=== PATIENT | female | born 1940 | race Two or more races ===

== ENCOUNTER 2018-08-08 13:52 | Inpatient (IN) | payer MEDICARE, OTHER ==
[~2018-08-08] VITALS: Ht 149.9 cm; Wt 68.6 kg
[2018-08-08] MEDS: PANTOPRAZOLE 40 MG TABLET.DR. PO SCH (07:30)
[2018-08-08 14:24] LABS: BASO # 0.1 x10^3/uL (0.0-0.2); BASO % 1 % (0-3); EOS % 1 % (0-3); HEMOGLOBIN 12.9 g/dL (12.0-15.5); LYMPH # 1.8 x10^3/uL (1.0-4.8); LYMPH % 25 % (24-48); MEAN CORPUSCULAR HEMOGLOBIN 32 pg (25-35); MEAN CORPUSCULAR HGB CONC 34 g/dL (31-37); MEAN CORPUSCULAR VOLUME 95 fL (79-100); MONO # 0.4 x10^3/uL (0.0-1.1); MONO % 5 % (0-9); NEUT # 4.9 x10^3uL (1.8-7.7); NEUT % 68 % (31-73); PLATELET COUNT 247 x10^3/uL (140-400); RED BLOOD COUNT 4.01 x10^6/uL (3.50-5.40); RED CELL DISTRIBUTION WIDTH 12.8 % (11.5-14.5); WHITE BLOOD COUNT 7.2 x10^3/uL (4.0-11.0)
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
[2018-08-08] MEDS ORDERED: tiZANidine 4 MG TABLET. PO ONE (14:30)
[2018-08-08] MEDS ORDERED: HYDROcodone/APAP 5/325MG 1 TAB TABLET PO ONE (14:30)
[2018-08-08 14:33] LABS: CALCIUM 9.5 mg/dL (8.5-10.1); GFR 53.3
[2018-08-08 14:38] LABS: BILIRUBIN,URINE NEGATIVE (NEG); COLOR,URINE YELLOW; NITRITE,URINE NEGATIVE (NEG); PROTEIN,URINE NEGATIVE (NEG-TRACE); UROBILINOGEN,URINE 0.2 mg/dL (0.2 mg/dL)
--- NOTE | 2018-08-08 14:38 | RAD ---
PROCEDURE: PORTABLE CHEST 1V CLINICAL INDICATION: LOWER BACK PAIN RADIATING TOWARDS LEFT ARM X1 WEEK COMPARISON: None FINDINGS: No pneumothorax identified. Cardiac and mediastinal contours unremarkable. No pulmonary consolidation or acute airspace disease. No acute osseous abnormalities identified. IMPRESSION: No pulmonary consolidation or acute airspace disease. Electronically signed by: Mann Munoz DO (08/08/2018 2:35 PM) [facility]
[2018-08-08 14:39] LABS: ALBUMIN 4.3 g/dL (3.4-5.0); TOTAL BILIRUBIN 0.5 mg/dL (0.2-1.0); TOTAL PROTEIN 8.6 g/dL (6.4-8.2)
[2018-08-08 14:41] LABS: CLARITY,URINE CLEAR
[2018-08-08 14:47] LABS: BACTERIA,URINE 0 /HPF (0-FEW); RBC,URINE 0 /HPF (0-2); SQUAMOUS EPITHELIAL CELL,UR FEW /LPF; WBC,URINE OCC /HPF (0-4)
--- NOTE | 2018-08-08 15:22 | RAD ---
CT cervical spine without contrast 08/08/2017 Clinical indication: Neck pain. COMPARISON: None. TECHNIQUE: Multiple CT images of the cervical spine were obtained without contrast. *One or more of the following individualized dose reduction techniques were utilized for this examination: 1. Automated exposure control. 2. Adjustment of the mA and/or kV according to patient size. 3. Use of iterative reconstruction technique. FINDINGS: Anterior cervical discectomy and fusion at C6-C7 with solid intervertebral fusion. No acute cervical spine fracture or traumatic malalignment. There is multilevel cervical spondylosis, greatest to a mild to moderate degree at C5-C6 with disc space narrowing endplate sclerosis and marginal osteophyte formation. Cervical spondylosis in conjunction with uncovertebral and facet hypertrophy on the left results in neural foraminal narrowing to a mild degree on the left at C2-C3 and C3-C4 and moderate degree on the left at C4-C5 and moderate degree on the left at C5-C6. No significant spinal canal narrowing. The paraspinal soft tissues are unremarkable. The visualized lung apices are clear. IMPRESSION: 1. No acute cervical spine fracture or traumatic malalignment. 2. ACDF at C6-C7. 3. Multilevel neural foraminal stenosis, greatest to a moderate degree, on the left at C5-C6. Electronically signed by: Jcarlos Buenrostro MD (08/08/2018 3:19 PM) [facility]
--- NOTE | 2018-08-08 15:25 | RAD ---
CT thoracic spine without contrast 08/08/2017 CLINICAL INDICATION: Back pain with no new injury. COMPARISON: None. TECHNIQUE: Multiple CT images of the thoracic spine were obtained without contrast. *One or more of the following individualized dose reduction techniques were utilized for this examination: 1. Automated exposure control. 2. Adjustment of the mA and/or kV according to patient size. 3. Use of iterative reconstruction technique. FINDINGS: Dextroconvex thoracic scoliosis. Vertebral body heights are maintained. Multilevel thoracic spondylosis with osteophytic spurring. Partial visualization of ACDF hardware at C6-C7. No significant spinal canal or neural foraminal narrowing. The paraspinal soft tissues are unremarkable. Coronary artery calcifications are noted. IMPRESSION: No acute thoracic spine fracture or traumatic malalignment. Electronically signed by: Jcarlos Buenrostro MD (08/08/2018 3:21 PM) [facility]
--- NOTE | 2018-08-08 15:49 | RAD ---
CT lumbar spine without contrast 08/08/2018 Clinical indication: Back pain. COMPARISON: None. TECHNIQUE: Multiple CT images of the lumbar spine were obtained without contrast. *One or more of the following individualized dose reduction techniques were utilized for this examination: 1. Automated exposure control. 2. Adjustment of the mA and/or kV according to patient size. 3. Use of iterative reconstruction technique. FINDINGS: There are 5 nonrib-bearing lumbar-type vertebral bodies with the 1st considered L1. Vertebral body heights are maintained. There is mild lumbar spinal curvature which may be positional. There is mild multilevel lumbar spondylosis, greatest from T12-L1 through L2-L3 with disc space narrowing and marginal osteophyte formation. The paraspinal soft tissues are unremarkable. There is abutment of the spinous processes from L2-L3 through L4-L5 with adjacent bony remodeling evidenced by sclerosis and cystic change. From T12-L1 through L3-L4, no significant spinal canal or neural foraminal narrowing. At L4-L5, shallow disc bulging with facet hypertrophy and ligamentum flavum thickening resulting in mild spinal canal narrowing. No significant neuroforaminal narrowing. No significant spinal canal or neural foraminal narrowing at L5-S1. IMPRESSION: No acute lumbar spine fracture or traumatic malalignment. Electronically signed by: Jcarlos Buenrostro MD (08/08/2018 3:46 PM) [facility] [place]
[2018-08-08] MEDS ORDERED: PRED20TA PO (15:57)
[2018-08-08] MEDS ORDERED: TIZA4CAP3 PO (15:57)
[2018-08-08] MEDS ORDERED: IV NORMAL SALINE 1000ML BAG 1,000 ML IV ONE ×2 (17:00→17:45)
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
[2018-08-08] MEDS ORDERED: fentaNYL PF VIAL 100 MCG/2 ML VIAL IV ONE (17:30)
[2018-08-08 19:25] VITALS: BP 117/62
[2018-08-08] MEDS ORDERED: CETI10TA22 PO (20:39)
[2018-08-08] MEDS ORDERED: AMLO2.5T5 PO (20:39)
[2018-08-08] MEDS ORDERED: HYDR-2759 PO (20:39)
[2018-08-08] MEDS ORDERED: ATOR20TA58 PO (20:39)
[2018-08-08] MEDS ORDERED: POLY17PO29 PO (20:39)
[2018-08-08] MEDS ORDERED: LEVO50TA5 PO (20:39)
[2018-08-08] MEDS ORDERED: DOCU-109 PO (20:39)
[2018-08-08] MEDS ORDERED: CELE100C PO (20:39)
[2018-08-08] MEDS ORDERED: OMEP10SU2 PO (20:39)
[2018-08-08] MEDS ORDERED: ALPR0.25 PO (20:39)
[2018-08-08] MEDS ORDERED: SERT50TA PO (20:39)
[2018-08-08] MEDS ORDERED: LISI-130 PO (20:39)
[2018-08-08] MEDS ORDERED: POLYETHYLENE GLYCOL 3350 17 GM PACKET. PO PRN (20:45)
[2018-08-08] MEDS ORDERED: MORPHINE SULFATE 4 MG/ML VIAL. IV PRN (20:45)
[2018-08-08] MEDS ORDERED: ACETAMINOPHEN 325 MG TABLET. PO PRN (20:45)
[2018-08-08] MEDS ORDERED: ONDANSETRON PF 4 MG/2 ML VIAL. IV PRN (20:45)
[2018-08-08] MEDS ORDERED: ALPRAZolam 0.25 MG TABLET PO PRN (20:45)
[2018-08-08] MEDS ORDERED: MAGNESIUM HYDROXIDE 2,400 MG/30 ML ORAL.SUSP. PO PRN (20:45)
[2018-08-08] MEDS ORDERED: HYDROcodone/APAP 5/325MG 1 TAB TABLET PO PRN (21:00)
[2018-08-08] MEDS: SENNOSIDES/DOCUSATE 8.6/50MG TABLET. PO SCH (21:00)
[2018-08-08] MEDS: DOCUSATE SODIUM 100 MG CAPSULE. PO SCH (21:48)
[2018-08-08] MEDS: CELECOXIB 100 MG CAPSULE. PO SCH (21:48)
[2018-08-08] MEDS: HYDROcodone/APAP 5/325MG 1 TAB TABLET PO PRN (21:48)
[2018-08-08] MEDS: methylPREDNISolone SOD SUCC PF 40 MG/ML VIAL. IV SCH (21:49)
[2018-08-08] MEDS: ATORVASTATIN CALCIUM 20 MG TABLET PO SCH (21:49)
[2018-08-08] MEDS: IV RINGERS,LACTATED 1000ML 1,000 ML IV SCH (21:53)
[2018-08-08] MEDS: LIDOCAINE (700MG/PATCH) PATCH. TD SCH (21:53)
[2018-08-08] MEDS: HEPARIN for SUB-Q USE 5,000 UNIT/ML VIAL. SQ SCH (21:56)
[2018-08-08 23:35] VITALS: BP 115/56
[2018-08-09 03:30] VITALS: BP 146/62
[2018-08-09] MEDS: HYDROcodone/APAP 5/325MG 1 TAB TABLET PO PRN ×3 (05:46→21:21)
[2018-08-09] MEDS: LEVOTHYROXINE 50 MCG TABLET PO SCH (05:46)
[2018-08-09] MEDS: HEPARIN for SUB-Q USE 5,000 UNIT/ML VIAL. SQ SCH ×3 (05:52→21:31)
[2018-08-09] MEDS: IV RINGERS,LACTATED 1000ML 1,000 ML IV SCH ×2 (06:34→10:00)
[2018-08-09] MEDS: PANTOPRAZOLE 40 MG TABLET.DR. PO SCH (07:30)
[2018-08-09 07:46] VITALS: BP 155/67
[2018-08-09] MEDS: SENNOSIDES/DOCUSATE 8.6/50MG TABLET. PO SCH ×2 (08:07→21:00)
[2018-08-09] MEDS: amLODIPine BESYLATE 5 MG TABLET PO SCH (08:08)
[2018-08-09] MEDS: methylPREDNISolone SOD SUCC PF 40 MG/ML VIAL. IV SCH ×2 (08:08→21:00)
[2018-08-09] MEDS: CETIRIZINE HCL 10 MG TABLET. PO SCH (08:09)
[2018-08-09] MEDS: DOCUSATE SODIUM 100 MG CAPSULE. PO SCH ×2 (08:09→21:00)
[2018-08-09] MEDS: SERTRALINE 50 MG TABLET. PO SCH (08:09)
[2018-08-09] MEDS: CELECOXIB 100 MG CAPSULE. PO SCH ×2 (08:09→21:00)
[2018-08-09] MEDS: LISINOPRIL 20 MG TABLET PO SCH (08:09)
[2018-08-09] MEDS: PATCH REMOVAL. MC SCH (08:15)
[2018-08-09 11:03] VITALS: BP 142/54
--- NOTE | 2018-08-09 11:52 | EKG ---
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
--- NOTE | 2018-08-09 12:27 | EKG ---
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
--- NOTE | 2018-08-09 13:26 | PDOC ---
PROGRESS NOTES Chief Complaint Chief Complaint Left sided pain - with C-5-6 root impingement a radiculopathy is a possibility, as well as inflammatory vasculitis, will give steroids. Consult PMR. Lidoderm patch, pain control Hypotension and bradycardia - will trend trops, place on telemetry. This seems to be a result of polypharmacy, muscle relaxant side effect. will bolus and keep inpatient overnight HLD - statin Hypothyroidism - levothyroxine Anxiety - cont home meds HTN - hold home meds FEN - General PPX - SCDs FULL CODE Inpatient for persistent hypotension and bradycardia after muscle relaxant administration History of Present Illness History of Present Illness Bradycardia has resolved. Pain seems to be well-controlled, waiting for PMR evaluation. Reassurance has been provided to the patient will concerns were addressed to the best of my abilities Vitals Vitals Vital Signs Date Time Temp Pulse Resp B/P (MAP) Pulse Ox O2 Delivery O2 Flow Rate FiO2 08/09/18 11:03 98.1 77 16 142/54 (83) 94 Room Air 98.1 Physical Exam General: Alert, Oriented X3, Cooperative, No acute distress Abdomen: Normal bowel sounds, Soft, No tenderness, No hepatosplenomegaly, No masses Extremities: No clubbing, No cyanosis, No edema, Normal pulses, Other (Tender left shoulder, left posterior ribs, left hip, left thigh) Skin: No rashes, No breakdown, No significant lesion Labs LABS Laboratory Tests Test 08/08/18 14:15 08/09/18 00:10 08/09/18 00:30 White Blood Count 7.2 x10^3/uL (4.0-11.0) Red Blood Count 4.01 x10^6/uL (3.50-5.40) Hemoglobin 12.9 g/dL (12.0-15.5) Hematocrit 38.0 % (36.0-47.0) Mean Corpuscular Volume 95 fL (79-100) Mean Corpuscular Hemoglobin 32 pg (25-35) Mean Corpuscular Hemoglobin Concent 34 g/dL (31-37) Red Cell Distribution Width 12.8 % (11.5-14.5) Platelet Count 247 x10^3/uL (140-400) Neutrophils (%) (Auto) 68 % (31-73) Lymphocytes (%) (Auto) 25 % (24-48) Monocytes (%) (Auto) 5 % (0-9) Eosinophils (%) (Auto) 1 % (0-3) Basophils (%) (Auto) 1 % (0-3) Neutrophils # (Auto) 4.9 x10^3uL (1.8-7.7) Lymphocytes # (Auto) 1.8 x10^3/uL (1.0-4.8) Monocytes # (Auto) 0.4 x10^3/uL (0.0-1.1) Eosinophils # (Auto) 0.0 x10^3/uL (0.0-0.7) Basophils # (Auto) 0.1 x10^3/uL (0.0-0.2) Urine Collection Type Void Urine Color Yellow Urine Clarity Clear Urine pH 6.0 Urine Specific [place] 1.010 Urine Protein Negative mg/dL (NEG-TRACE) Urine Glucose (UA) Negative mg/dL (NEG) Urine Ketones (Stick) Negative mg/dL (NEG) Urine Blood Negative (NEG) Urine Nitrite Negative (NEG) Urine Bilirubin Negative (NEG) Urine Urobilinogen Dipstick 0.2 mg/dL (0.2 mg/dL) Urine Leukocyte Esterase Trace (NEG) Urine RBC 0 /HPF (0-2) Urine WBC Occ /HPF (0-4) Urine Squamous Epithelial Cells Few /LPF Urine Bacteria 0 /HPF (0-FEW) Sodium Level 138 mmol/L (136-145) Potassium Level 4.0 mmol/L (3.5-5.1) Chloride Level 98 mmol/L (98-107) Carbon Dioxide Level 29 mmol/L (21-32) Anion Gap 11 (6-14) Blood Urea Nitrogen 16 mg/dL (7-20) Creatinine 1.0 mg/dL (0.6-1.0) Estimated GFR (Cockcroft-Gault) 53.3 BUN/Creatinine Ratio 16 (6-20) Glucose Level 103 mg/dL (70-99) Calcium Level 9.5 mg/dL (8.5-10.1) Total Bilirubin 0.5 mg/dL (0.2-1.0) Aspartate Amino Transf (AST/SGOT) 25 U/L (15-37) Alanine Aminotransferase (ALT/SGPT) 23 U/L (14-59) Alkaline Phosphatase 50 U/L (46-116) Troponin I Quantitative < 0.017 ng/mL (0.000-0.055) < 0.017 ng/mL (0.000-0.055) Total Protein 8.6 g/dL (6.4-8.2) Albumin 4.3 g/dL (3.4-5.0) Albumin/Globulin Ratio 1.0 (1.0-1.7) Erythrocyte Sedimentation Rate 20 (0-25) C-Reactive Protein, Quantitative 2.5 mg/L (0-3.3) Review of Systems Review of Systems Retention and as per history of present illness otherwise 14 point review of system is negative Assessment and Plan Assessmemt and Plan Problems Medical Problems: (1) Bradycardia Status: Acute (2) Hypotension Status: Acute (3) Musculoskeletal back pain Status: Acute (4) Sciatica Status: Acute Comment Review of Relevant I have reviewed the following items ha (where applicable) has been applied. Labs Laboratory Tests Test 08/08/18 14:15 08/09/18 00:10 08/09/18 00:30 White Blood Count 7.2 x10^3/uL (4.0-11.0) Red Blood Count 4.01 x10^6/uL (3.50-5.40) Hemoglobin 12.9 g/dL (12.0-15.5) Hematocrit 38.0 % (36.0-47.0) Mean Corpuscular Volume 95 fL (79-100) Mean Corpuscular Hemoglobin 32 pg (25-35) Mean Corpuscular Hemoglobin Concent 34 g/dL (31-37) Red Cell Distribution Width 12.8 % (11.5-14.5) Platelet Count 247 x10^3/uL (140-400) Neutrophils (%) (Auto) 68 % (31-73) Lymphocytes (%) (Auto) 25 % (24-48) Monocytes (%) (Auto) 5 % (0-9) Eosinophils (%) (Auto) 1 % (0-3) Basophils (%) (Auto) 1 % (0-3) Neutrophils # (Auto) 4.9 x10^3uL (1.8-7.7) Lymphocytes # (Auto) 1.8 x10^3/uL (1.0-4.8) Monocytes # (Auto) 0.4 x10^3/uL (0.0-1.1) Eosinophils # (Auto) 0.0 x10^3/uL (0.0-0.7) Basophils # (Auto) 0.1 x10^3/uL (0.0-0.2) Urine Collection Type Void Urine Color Yellow Urine Clarity Clear Urine pH 6.0 Urine Specific [place] 1.010 Urine Protein Negative mg/dL (NEG-TRACE) Urine Glucose (UA) Negative mg/dL (NEG) Urine Ketones (Stick) Negative mg/dL (NEG) Urine Blood Negative (NEG) Urine Nitrite Negative (NEG) Urine Bilirubin Negative (NEG) Urine Urobilinogen Dipstick 0.2 mg/dL (0.2 mg/dL) Urine Leukocyte Esterase Trace (NEG) Urine RBC 0 /HPF (0-2) Urine WBC Occ /HPF (0-4) Urine Squamous Epithelial Cells Few /LPF Urine Bacteria 0 /HPF (0-FEW) Sodium Level 138 mmol/L (136-145) Potassium Level 4.0 mmol/L (3.5-5.1) Chloride Level 98 mmol/L (98-107) Carbon Dioxide Level 29 mmol/L (21-32) Anion Gap 11 (6-14) Blood Urea Nitrogen 16 mg/dL (7-20) Creatinine 1.0 mg/dL (0.6-1.0) Estimated GFR (Cockcroft-Gault) 53.3 BUN/Creatinine Ratio 16 (6-20) Glucose Level 103 mg/dL (70-99) Calcium Level 9.5 mg/dL (8.5-10.1) Total Bilirubin 0.5 mg/dL (0.2-1.0) Aspartate Amino Transf (AST/SGOT) 25 U/L (15-37) Alanine Aminotransferase (ALT/SGPT) 23 U/L (14-59) Alkaline Phosphatase 50 U/L (46-116) Troponin I Quantitative < 0.017 ng/mL (0.000-0.055) < 0.017 ng/mL (0.000-0.055) Total Protein 8.6 g/dL (6.4-8.2) Albumin 4.3 g/dL (3.4-5.0) Albumin/Globulin Ratio 1.0 (1.0-1.7) Erythrocyte Sedimentation Rate 20 (0-25) C-Reactive Protein, Quantitative 2.5 mg/L (0-3.3) Laboratory Tests Test 08/08/18 14:15 08/09/18 00:10 08/09/18 00:30 White Blood Count 7.2 x10^3/uL (4.0-11.0) Red Blood Count 4.01 x10^6/uL (3.50-5.40) Hemoglobin 12.9 g/dL (12.0-15.5) Hematocrit 38.0 % (36.0-47.0) Mean Corpuscular Volume 95 fL (79-100) Mean Corpuscular Hemoglobin 32 pg (25-35) Mean Corpuscular Hemoglobin Concent 34 g/dL (31-37) Red Cell Distribution Width 12.8 % (11.5-14.5) Platelet Count 247 x10^3/uL (140-400) Neutrophils (%) (Auto) 68 % (31-73) Lymphocytes (%) (Auto) 25 % (24-48) Monocytes (%) (Auto) 5 % (0-9) Eosinophils (%) (Auto) 1 % (0-3) Basophils (%) (Auto) 1 % (0-3) Neutrophils # (Auto) 4.9 x10^3uL (1.8-7.7) Lymphocytes # (Auto) 1.8 x10^3/uL (1.0-4.8) Monocytes # (Auto) 0.4 x10^3/uL (0.0-1.1) Eosinophils # (Auto) 0.0 x10^3/uL (0.0-0.7) Basophils # (Auto) 0.1 x10^3/uL (0.0-0.2) Urine Collection Type Void Urine Color Yellow Urine Clarity Clear Urine pH 6.0 Urine Specific [place] 1.010 Urine Protein Negative mg/dL (NEG-TRACE) Urine Glucose (UA) Negative mg/dL (NEG) Urine Ketones (Stick) Negative mg/dL (NEG) Urine Blood Negative (NEG) Urine Nitrite Negative (NEG) Urine Bilirubin Negative (NEG) Urine Urobilinogen Dipstick 0.2 mg/dL (0.2 mg/dL) Urine Leukocyte Esterase Trace (NEG) Urine RBC 0 /HPF (0-2) Urine WBC Occ /HPF (0-4) Urine Squamous Epithelial Cells Few /LPF Urine Bacteria 0 /HPF (0-FEW) Sodium Level 138 mmol/L (136-145) Potassium Level 4.0 mmol/L (3.5-5.1) Chloride Level 98 mmol/L (98-107) Carbon Dioxide Level 29 mmol/L (21-32) Anion Gap 11 (6-14) Blood Urea Nitrogen 16 mg/dL (7-20) Creatinine 1.0 mg/dL (0.6-1.0) Estimated GFR (Cockcroft-Gault) 53.3 BUN/Creatinine Ratio 16 (6-20) Glucose Level 103 mg/dL (70-99) Calcium Level 9.5 mg/dL (8.5-10.1) Total Bilirubin 0.5 mg/dL (0.2-1.0) Aspartate Amino Transf (AST/SGOT) 25 U/L (15-37) Alanine Aminotransferase (ALT/SGPT) 23 U/L (14-59) Alkaline Phosphatase 50 U/L (46-116) Troponin I Quantitative < 0.017 ng/mL (0.000-0.055) < 0.017 ng/mL (0.000-0.055) Total Protein 8.6 g/dL (6.4-8.2) Albumin 4.3 g/dL (3.4-5.0) Albumin/Globulin Ratio 1.0 (1.0-1.7) Erythrocyte Sedimentation Rate 20 (0-25) C-Reactive Protein, Quantitative 2.5 mg/L (0-3.3) Medications Current Medications Acetaminophen/ Hydrocodone Bitart (Lortab 5/325) 1 tab 1X ONCE PO Last administered on 08/08/18at 14:47; Start 08/08/18 at 14:30; Stop 08/08/18 at 14:31 ; Status DC Tizanidine HCl (Zanaflex) 4 mg 1X ONCE PO Last administered on 08/08/18at 14:47 ; Start 08/08/18 at 14:30; Stop 08/08/18 at 14:31; Status DC Sodium Chloride 1,000 ml @ 1,000 mls/hr 1X ONCE IV Last administered on at 16:15; Start 08/08/18 at 17:00; Stop 08/08/18 at 17:59; Status DC Fentanyl Citrate (Fentanyl 2ml Vial) 25 mcg 1X ONCE IV Last administered on 18:16; Start 08/08/18 at 17:30; Stop 08/08/18 at 17:31; Status DC Sodium Chloride 1,000 ml @ 75 mls/hr 1X ONCE IV Last administered on 18:16; Start 08/08/18 at 17:45; Stop 08/09/18 at 07:04; Status DC Lidocaine (Lidoderm) 1 patch QHS TD Last administered on 08/08/18 21:53; Start 08/08/18 at 21:00 Miscellaneous (Lidoderm Patch Removal) 1 ea DAILY MC Last administered on 08:15; Start 08/09/18 at 09:00 Methylprednisolone Sodium Succinate (SOLU-Medrol 40MG VIAL) 40 mg Q12HR IV Last administered on 08/09/18 08:08; Start 08/08/18 at 21:00 Ringer's Solution 1,000 ml @ 100 mls/hr Q10H IV Last administered on 06:34; Start 08/08/18 at 20:32 Ondansetron HCl (Zofran) 4 mg PRN Q6HRS PRN IV NAUSEA/VOMITING; Start 08/08/18 at 20:45 Morphine Sulfate (Morphine Sulfate) 2 mg PRN Q4HRS PRN IV PAIN; Start 08/08/18 at 20:45 Acetaminophen/ Hydrocodone Bitart (Lortab 5/325) 1 tab PRN Q4HRS PRN PO MILD PAIN Last administered on 08/09/18 05:46; Start 08/08/18 at 20:45 Acetaminophen (Tylenol) 650 mg PRN Q6HRS PRN PO Headaches, Temp > 101.5F; Start 08/08/18 at 20:45 Senna/Docusate Sodium (Senna Plus) 1 tab BID PO ; Start 08/08/18 at 21:00 Magnesium Hydroxide (Milk Of Magnesia) 2,400 mg PRN Q12HR PRN PO CONSTIPATION; Start 08/08/18 at 20:45 Heparin Sodium (Porcine) (Heparin Sodium) 5,000 unit Q8HRS SQ Last administered on 08/09/18 05:52; Start 08/08/18 at 22:00 Alprazolam (Xanax) 0.25 mg PRN BID PRN PO ANXIETY / AGITATION Last administered on 08/09/18 05:48; Start 08/08/18 at 20:45 Atorvastatin Calcium (Lipitor) 20 mg HS PO Last administered on 08/08/18 21:49 ; Start 08/08/18 at 21:00 Celecoxib (CeleBREX) 100 mg BID PO Last administered on 08/09/18 08:09; Start 08/08/18 at 21:00 Cetirizine HCl (ZyrTEC) 10 mg DAILY PO Last administered on 08/09/18 08:09; Start 08/09/18 at 09:00 Docusate Sodium (Colace) 100 mg BID PO Last administered on 08/08/18 21:48; Start 08/08/18 at 21:00 Acetaminophen/ Hydrocodone Bitart (Lortab 5/325) 1 tab PRN TID PRN PO Chronic pain; Start 08/08/18 at 21:00 Lisinopril (Prinivil) 40 mg DAILY PO Last administered on 08/09/18 08:09; Start 08/09/18 at 09:00 Sertraline HCl (Zoloft) 50 mg DAILY PO Last administered on 08/09/18 08:09; Start 08/09/18 at 09:00 Amlodipine Besylate (Norvasc) 2.5 mg DAILY PO Last administered on 08/09/18 08 :08; Start 08/09/18 at 09:00 Levothyroxine Sodium (Synthroid) 50 mcg DAILY06 PO Last administered on 05:46; Start 08/09/18 at 06:00 Pantoprazole Sodium (Protonix) 40 mg DAILYAC PO Last administered on 08/09/18 07:30; Start 08/08/18 at 07:30 Polyethylene Glycol (miraLAX PACKET) 17 gm PRN DAILY PRN PO CONSTIPATION; Start 08/08/18 at 20:45 Active Scripts Active Reported Prilosec (Omeprazole Magnesium) 10 Mg Suspdr.pkt 40 Mg PO DAILY PRN Miralax (Polyethylene Glycol 3350) 17 Gm Powd.pack 1 Packet PO DAILY PRN Colace (Docusate Sodium) 100 Mg Capsule 1 Cap PO BID Zyrtec (Cetirizine Hcl) 10 Mg Tablet 1 Tab PO DAILY Zoloft (Sertraline Hcl) 50 Mg Tablet 1 Tab PO DAILY Celebrex (Celecoxib) 100 Mg Capsule 1 Cap PO BID Xanax (Alprazolam) 0.25 Mg Tablet 1 Tab PO BID PRN Atorvastatin Calcium 20 Mg Tablet 1 Tab PO HS Lisinopril 40 Mg Tablet 1 Tab PO DAILY Amlodipine Besylate 2.5 Mg Tablet 2.5 Mg PO DAILY Levothyroxine Sodium 50 Mcg Tablet 1 Tab PO DAILY Hydrocodone-Acetamin 5-325 mg (Hydrocodone/Acetaminophen) 1 Each Tablet 1 Tab PO TID PRN Vitals/I & O Vital Sign - Last 24 Hours 08/08/18 08/08/18 08/08/18 08/08/18 14:00 16:14 16:21 16:40 Temp 98.8 98.8 Pulse 71 48 49 50 Resp 16 16 16 16 B/P (MAP) 180/81 (114) 75/36 (49) 81/44 (56) 81/44 (56) Pulse Ox 98 95 95 95 O2 Delivery Room Air Room Air Room Air Room Air 08/08/18 08/08/18 08/08/18 08/08/18 17:00 17:30 18:20 19:15 Pulse 50 50 55 Resp 16 18 16 B/P (MAP) 106/51 (69) 106/54 (71) 120/59 (79) Pulse Ox 95 97 98 O2 Delivery Room Air Room Air Room Air Room Air 08/08/18 08/08/18 08/09/18 08/09/18 19:25 23:35 03:30 07:46 Temp 97.8 98.2 98.0 97.7 97.8 98.2 98.0 97.7 Pulse 60 61 74 63 Resp 17 17 16 16 B/P (MAP) 117/62 (80) 115/56 (75) 146/62 (90) 155/67 (96) Pulse Ox 99 98 96 95 O2 Delivery Room Air Room Air Room Air Room Air 08/09/18 08/09/18 08/09/18 08/09/18 08:08 08:09 08:15 11:03 Temp 98.1 98.1 Pulse 63 63 77 Resp 16 B/P (MAP) 155/67 155/67 142/54 (83) Pulse Ox 94 O2 Delivery Room Air Room Air Intake and Output 08/08/18 08/08/18 08/09/18 15:00 23:00 07:00 Intake Total 1150 ml 1000 ml Balance 1150 ml 1000 ml ANEUDY ELMORE MD Aug 09, 2018 13:26
[2018-08-09 14:47] VITALS: BP 136/46
[2018-08-09 19:48] VITALS: BP 151/67
[2018-08-09] MEDS: LIDOCAINE (700MG/PATCH) PATCH. TD SCH (21:00)
[2018-08-09] MEDS: ATORVASTATIN CALCIUM 20 MG TABLET PO SCH (21:00)
[2018-08-09 23:25] VITALS: BP 158/65
[2018-08-10] MEDS: IV RINGERS,LACTATED 1000ML 1,000 ML IV SCH (02:32)
[2018-08-10 03:25] VITALS: BP 107/53
[2018-08-10] MEDS: LEVOTHYROXINE 50 MCG TABLET PO SCH (05:35)
[2018-08-10] MEDS: HEPARIN for SUB-Q USE 5,000 UNIT/ML VIAL. SQ SCH (05:38)
[2018-08-10] MEDS: PANTOPRAZOLE 40 MG TABLET.DR. PO SCH (07:37)
[2018-08-10 07:48] VITALS: BP 145/67
[2018-08-10] MEDS: LISINOPRIL 20 MG TABLET PO SCH (08:54)
[2018-08-10] MEDS: methylPREDNISolone SOD SUCC PF 40 MG/ML VIAL. IV SCH (08:54)
[2018-08-10] MEDS: SENNOSIDES/DOCUSATE 8.6/50MG TABLET. PO SCH (08:54)
[2018-08-10] MEDS: CELECOXIB 100 MG CAPSULE. PO SCH (08:55)
[2018-08-10] MEDS: amLODIPine BESYLATE 5 MG TABLET PO SCH (08:55)
[2018-08-10] MEDS: SERTRALINE 50 MG TABLET. PO SCH (08:55)
[2018-08-10] MEDS: CETIRIZINE HCL 10 MG TABLET. PO SCH (08:55)
[2018-08-10] MEDS: DOCUSATE SODIUM 100 MG CAPSULE. PO SCH (08:55)
[2018-08-10] MEDS: HYDROcodone/APAP 5/325MG 1 TAB TABLET PO PRN (08:56)
[2018-08-10] MEDS: PATCH REMOVAL. MC SCH (08:56)
[2018-08-10] MEDS ORDERED: LIDO700A39 TD (09:29)
[2018-08-10] MEDS ORDERED: CYCL7.5T PO (09:29)
[2018-08-10] MEDS ORDERED: PRED50TA PO (09:29)
[2018-08-10] MEDS ORDERED: IBUP-1007 PO (09:33)
[2018-08-10 10:45] VITALS: BP 140/67
--- NOTE | 2018-08-10 11:20 | NUR ---
Discharge Note: [facility] Discharge instructions and discharge home medications reviewed with Patient and Daughter and a copy given. All questions have been answered and understanding verbalized. The following instructions and handouts were given: hypotension, bradycardia, chronic back pain Discontinued lines and drains: Peripheral IV intact. Patient discharged to Home or Self Care with Family Member via Wheelchair
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
== END 2018-08-10 11:45 | disposition home or self-care (01) | DRG 552 ==
LOC: ER 13:52 → 2 SOUTH 17:30
PROVIDERS: ADMIT Internal Medicine; ATTEND Internal Medicine
DX: M47.812 Spondylosis without myelopathy or radiculopathy, cervical region (principal); I95.9 Hypotension, unspecified; M51.36 Other intervertebral disc degeneration, lumbar region; I10 Essential (primary) hypertension; E03.9 Hypothyroidism, unspecified; E05.90 Thyrotoxicosis, unspecified without thyrotoxic crisis or storm; E78.5 Hyperlipidemia, unspecified; F41.9 Anxiety disorder, unspecified; M48.02 Spinal stenosis, cervical region; G89.29 Other chronic pain; I77.6 Arteritis, unspecified; M25.78 Osteophyte, vertebrae; M54.30 Sciatica, unspecified side; M81.0 Age-related osteoporosis without current pathological fracture; Z98.1 Arthrodesis status; M50.30 Other cervical disc degeneration, unspecified cervical region
CPT/HCPCS: 36415; 71045; 72125; 72128; 72131; 80053; 81001; 84484; 85025; 85651; 86140; 87086; 93005; 96361; 96374; J1644; J2920; J3010; J7030; J7120; 99285-25